=== PATIENT | female | born 1930 ===

== ENCOUNTER 2019-03-11 10:26 | Emergency (ER) | payer MEDICAID, MEDICARE ==
--- NOTE | 2019-03-11 10:35 | UC ---
Back Pain HPI - HPI Summary HPI Summary: 88 yo female presents accompanied by a friend/neighbor with right sided low back pain radiating into her right hip and knee. Pt is a rather poor historian and neighbor states that pt suffers from "forgetfullness". Pt tells me that she has a history of low back problems and had back surgery about 10-12 years ago and over the last few years has had low back pain almost everyday that is worse at night after being active most of the day. She tells me that this morning around 0300 she woke up in the middle of the night and had right sided lower back pain radiating into her right hip down to her right knee - this was not unusual for her. The pain has persisted into this morning, which she says is not typical - prompting her visit to . Pain is worse with ambulation and with flexing her right hip. She is ambulatory at baseline with a cane and is using this today. She has not taken anything OTC for her discomfort and states that tylenol "upsets her stomach". She did not have a specific injury. She denies recent illness, numbness, tingling, dysuria, saddle anesthesia, or loss of bowel /bladder control. - History of Current Complaint Stated Complaint: BACK PAIN Time Seen by Provider: 03/11/19 10:35 Hx Obtained From: Patient, Family/Echo Tech Onset/Duration: Sudden Onset Severity Initially: Moderate Severity Currently: Moderate Pain Intensity: 7 Pain Scale Used: 0-10 Numeric - Allergies/Home Medications Allergies/Adverse Reactions: Allergies Allergy/AdvReac Type Severity Reaction Status Date / Time cephalexin [From Keflex] Allergy Unknown Verified 03/11/19 11:09 Reaction Details dabigatran etexilate Allergy Unknown Verified 03/11/19 11:09 [From Pradaxa] Reaction Details Sulfa (Sulfonamide Allergy Unknown Verified 03/11/19 11:09 Antibiotics) Reaction Details Home Medications: Home Medications Digoxin [Digitek] 250 mcg PO SEE INSTRUCTIONS 03/11/19 [History Confirmed ] Flecainide TAB* [Tambocor TAB*] 50 mg PO BID 03/11/19 [History Confirmed ] Metoprolol Succinate XL TAB* [Toprol XL TAB*] 25 mg PO BID 03/11/19 [History Confirmed 03/11/19] Rivaroxaban TAB(*) [Xarelto 15 mg(*)] 15 mg PO DAILY 03/11/19 [History Confirmed 03/11/19] dilTIAZem HCl [Diltiazem HCl] 120 mg PO DAILY 03/11/19 [History Confirmed ] PMH/Surg Hx/FS Hx/Imm Hx - Additional Past Medical History Additional PMH: Right knee pain Hypercalcemia Afib HTN Mitral Valve disorder - Surgical History Surgical History: Yes - Back surgery ~2008 - Family History Known Family History: Positive: Unknown - Social History Occupation: Retired Lives: Alone Alcohol Use: Occasionally Substance Use Type: None Smoking Status (MU): Never Smoked Tobacco Review of Systems All Other Systems Reviewed And Are Negative: Yes Constitutional: Positive: Negative Skin: Positive: Negative Respiratory: Positive: Negative Cardiovascular: Positive: Negative Gastrointestinal: Positive: Negative Genitourinary: Positive: Negative Neurovascular: Positive: Negative Musculoskeletal: Positive: Other: - Low back pain with radiation Neurological: Positive: Negative Psychological: Positive: Negative Physical Exam - Summary Physical Exam Summary: GENERAL: NAD. WDWN. No pain distress. SKIN: No rashes, sores, lesions, or open wounds. NECK: Supple. FROM. Nontender. CHEST: CTAB. No r/r/w. No accessory muscle use. Breathing comfortably and in no distress. CV: Pulses intact. Cap refill <2seconds MSK: TTP over RIGHT lumbar paraspinal muscles and RIGHT SI. RIGHT trochanter TTP. Pain with flexion of spine and flexion of right hip. Positive SLR right for low back pain with radiation into right thigh into knee. Strength b/l LEs is equal including dorsiflexion and plantar flexion. RIGHT KNEE: Obvious arthritic bony deformity. FROM at right knee and NTTP. NEURO: Alert. Sensations intact B/L LEs L3-S1. Reflexes intact PSYCH: Age appropriate behavior. Triage Information Reviewed: Yes Vital Signs: Vital Signs: Temp Pulse Resp BP Pulse Ox 99.3 F 73 16 137/55 96 03/11/19 10:36 03/11/19 10:36 03/11/19 10:36 03/11/19 10:36 03/11/19 10:36 Vital Signs Reviewed: Yes Re-Evaluation - Re-Evaluation First Eval Re-Evaluation Time: 12:05 Change: Improved Comment: Discussing XR results. Pt states she feels better and less pain with just resting in the exam room. Back Pain Course/Dx - Course Course Of Treatment: XR lumbar: IMPRESSION: 1. SCOLIOSIS. 2. SPONDYLOLISTHESIS. 3. OSTEOPENIA. 4. ADVANCED DEGENERATIVE DISC DISEASE AND OSTEOARTHRITIS. 5. STATUS POST LAMINECTOMY. XR hip: IMPRESSION: OSTEOARTHRITIS. NO ACUTE OSSEOUS INJURY. IF SYMPTOMS PERSIST, RECOMMEND REPEAT IMAGING. XR knee: IMPRESSION: OSTEOPENIA. OSTEOARTHRITIS. NO ACUTE OSSEOUS INJURY. THE DEGREE OF OSTEOPENIA MAY MAKE A NONDISPLACED FRACTURE RADIOGRAPHICALLY OCCULT. IF SYMPTOMS PERSIST, RECOMMEND REPEAT IMAGING. Discussed results with patient. This is a difficult situation as she has discomfort and significant osteoarthritic changes, but her health history and medications do not allow her to take NSAIDs; and given her age and underlying memory issues likely would not do well with narcotic medication. This leaves her with OTC lidocaine patches and OTC tylenol. I will refer her to Orthopedics for further eval to see if she is a candidate for injections or if they have any other pain control options such as physical therapy. Pt and friend with her today voiced understanding and are in agreement with the plan. - Differential Dx/Diagnosis Provider Diagnosis: Right hip pain, Sciatica, Right knee pain Discharge - Sign-Out/Discharge Documenting (check all that apply): Patient Departure All imaging exams completed and their final reports reviewed: Yes - Discharge Plan Condition: Stable Disposition: HOME Patient Education Materials: Osteoarthritis (ED), Back Pain (ED) Referrals: Pooja Cook MD [Medical Doctor] - As Soon As Possible No Primary Care Phys,NOPCP [Primary Care Provider] - Additional Instructions: If you develop a fever, shortness of breath, chest pain, new or worsening symptoms - please call your PCP or go to the ED immediately. 1) You may take tylenol as directed for your discomfort 2) I recommend that you call Dr. Cook (Orthopedics) at the number below to schedule an appointment for further evaluation of your hip and knee pain. - Billing Disposition and Condition Condition: STABLE Disposition: Home - Attestation Statements Provider Attestation: I was available for consult. This patient was seen by the [facility]. The patient was not presented to, seen by, or examined by me. -Gilbert
== END 2019-03-11 12:19 | disposition home or self-care (01) ==
LOC: UCEAST 10:26
DX: M54.41 Lumbago with sciatica, right side (principal); M25.551 Pain in right hip; M25.561 Pain in right knee; I10 Essential (primary) hypertension; I48.91 Unspecified atrial fibrillation; Z88.2 Allergy status to sulfonamides; Z79.01 Long term (current) use of anticoagulants
CPT/HCPCS: 72110; 99201; G0463